=== PATIENT | female | born 1950 | race Caucasian/White ===

== ENCOUNTER 2018-12-13 21:56 | Emergency (ER) | payer MEDICARE, OTHER, SELFPAY ==
--- NOTE | 2018-12-13 22:03 | ED.GENADULT ---
HPI - General Adult General Chief complaint: Shortness of Breath/Dyspnea Stated complaint: states throat spasms Time Seen by Provider: 12/13/18 22:01 Source: patient Mode of arrival: ambulatory Limitations: no limitations History of Present Illness HPI narrative: Patient is a 68-year-old female here for evaluation of which she states is a laryngeal spasm. Patient states that it has been going off and on for the past 2 weeks. She states she does have a history of asthma min has had episodes like this in the past however she states that it is normally the result of yelling or laughing. She states that tonight's episode was a result of a prolonged episode of laughing. No problems swallowing. No problems breathing. Related Data Previous Rx's Medication Instructions Recorded albuterol sulfate 2.5 mg INHALATION Q4-6H PRN #30 12/14/18 each Allergies Allergy/AdvReac Type Severity Reaction Status Date / Time No Known Drug Allergies Allergy Verified 12/13/18 22:23 Review of Systems Constitutional Denies fever(s) and Denies headache(s) ENT Ears, Nose, Mouth, and Throat: Denies headache(s) Comments: Sore throat, arranges spasm Cardiovascular Denies chest pain Respiratory Reports cough Gastrointestinal Gastrointestinal: Denies nausea and Denies vomiting Integumentary/Breasts Denies lesions and Denies rash Neurologic Denies headache(s) Hematologic/Lymphatic Denies easy bleeding and Denies easy bruising COUNTS INCLUDE 234 BEDS AT THE [facility] Medical History Asthma (Acute) Social History marital status: Social History marital status: Exam Initial Vital Signs Initial Vital Signs: Vital Signs Temperature 99 F 12/13/18 22:05 Pulse Rate 87 12/13/18 22:05 Respiratory Rate 19 12/13/18 22:05 Blood Pressure 169/78 H 12/13/18 22:05 Pulse Oximetry 100 12/13/18 22:05 Const General: cooperative, well developed, well groomed and No acute distress Orientation: alert and awake HENMT Head: normal to inspection and normocephalic Face and sinus: normal facial exam Mouth: oral mucosae normal Throat: posterior oropharynx normal Resp Effort & Inspection: cough, labored, no retractions, no stridor and tachypneic Auscultation: clear to auscultation bilaterally Cardio Rate: regular rate Rhythm: regular rhythm Skin Lesions: no lesions Rashes: no rashes Neuro General: alert and awake Cognition: normal cognition Extrem General: normal to inspection and capillary refill normal Psych Appearance: grossly normal and well kempt Course Orders Ordered: Discontinued Medications Albuterol/Ipratropium (Duoneb) 3 ml INH NOW ONE Stop: 12/13/18 23:16 Last Admin: 12/13/18 23:21 Dose: 3 ml Dexamethasone (Decadron) 10 mg PO NOW ONE Stop: 12/13/18 22:04 Last Admin: 12/13/18 22:35 Dose: 10 mg Epinephrine (Epinephrine Racemic) 0.5 ml INH NOW ONE Stop: 12/13/18 22:02 Last Admin: 12/13/18 22:22 Dose: 0.5 ml Lidocaine HCl (Xylocaine-Mpf 1% Ampul) 5 ml INJ NOW ONE Stop: 12/13/18 22:34 Vital Signs - 8 hr 12/13/18 22:05 12/13/18 22:22 12/13/18 23:27 Temperature 99 F Pulse Rate 87 88 78 Respiratory Rate 19 20 15 Blood Pressure 169/78 H Blood Pressure [Left Arm] 145/86 H Pulse Oximetry 100 100 100 Medical Decision Making MDM Narrative Medical decision making narrative: Patient was initially given a racemic epi nebulizer which helped her symptoms tremendously. She was then given a lidocaine nebulizer which again helped the symptoms more. She was given Decadron. The coughing then came back so she was given a DuoNeb. She was observed here in the emergency department for appeared of time with a vast improvement of her symptoms. I do suspect that her symptoms may be a cough variant of asthma. Will send home with prescription for albuterol solution for her nebulizer. She was given return precautions. She expressed understanding and agreement with plan. Discharge Plan Departure Patient Disposition: Home Clinical Impression: Cough, Laryngeal spasm Asthma Qualifiers: Asthma severity: unspecified severity Asthma persistence: unspecified Asthma complication type: unspecified Qualified Code(s): J45.909 - Unspecified asthma, uncomplicated Instructions: Asthma -- Adult Activity Restrictions/Additional Instructions: I recommend that on Sunday you contact your primary care provider for further workup of the symptoms that brought you to the emergency department this evening. Return to the emergency department for any new or worsening symptoms Prescriptions: New albuterol sulfate 2.5 mg/0.5 mL solution for nebulization 2.5 mg INHALATION Q4-6H PRN (Reason: shortness of breath or wheezing) Qty: 30 RF: 0
[2018-12-13 22:05] VITALS: BP 169/78; PULSE 87; RESP 19; TEMP 37.2; O2SAT 100; BMI 19.3
[2018-12-13] MEDS: LIDOCAINE 1% INJ (22:20)
[2018-12-13 22:22] VITALS: PULSE 88; RESP 20; O2SAT 100
[2018-12-13] MEDS: RACEPINEPHRINE 0.5 ML NEB INH (22:22)
[2018-12-13] MEDS: DEXAMETHASONE 10 MG/ML VIAL PO (22:35)
[2018-12-13] MEDS: ALBUTEROL/IPRATROPIUM 3 ML AMPUL INH (23:21)
[2018-12-13 23:27] VITALS: BP 145/86; PULSE 78; RESP 15; O2SAT 100
[2018-12-14 00:13] VITALS: BP 123/53; PULSE 70; RESP 15; TEMP 36.7; O2SAT 98
[2018-12-14 00:14] VITALS: BP 123/53; PULSE 70; RESP 15; TEMP 36.7; O2SAT 98
== END 2018-12-14 00:20 | disposition home or self-care (01) ==
PROVIDERS: Emergency Provider Emergency Medicine
DX: R05 Cough (principal); J38.5 Laryngeal spasm; J45.909 Unspecified asthma, uncomplicated
CPT/HCPCS: 94640; 99283; 99284; J1100